=== PATIENT | female | born 2000 | race Two or more races ===

== ENCOUNTER 2025-06-04 16:04 | Inpatient (IN) ==
--- NOTE | 2025-06-04 16:32 | Emergency Department Note ---
Impression & Plan Tachypnea, Tachycardia, Chest pain, Shortness of breath, Leukocytosis, Fever ED Provider Note CHIEF COMPLAINT: SOB HISTORY OF PRESENTING ILLNESS: Patient is a 24-year-old female presents emergency department today for complaints of shortness of breath and a heavy pressure in her mid chest area. She reports she cannot lay flat without significant discomfort. She has been unable to sleep or get comfortable. She reports an onset of this morning when she woke up. She does report sleeping prone with her arm on her chest last night. She denies any control use, smoking or vaping, recent surgeries, recent travel. She does report some mild sinus congestion with a dry nonproductive cough. She denies any lightheadedness, dizziness, headache, visual changes, falls, injury, trauma. She denies any fevers or chills, urinary symptoms such as urgency frequency burning on urination. Denies any history of asthma or COPD. REVIEW OF SYSTEMS: See HPI for pertinent positives and pertinent negatives. ALLERGIES: See below MEDICATIONS: See below PAST MEDICAL HISTORY: See below PHYSICAL EXAM: VITALS: Vitals are noted on the nurse's note and reviewed by myself. GENERAL: Non toxic, in no acute distress, non-diaphoretic. SKIN: Capillary refill <2 sec. EYES: PERRLA. EOMI. Conjunctivae without injection, sclerae without icterus. NOSE: Patent without discharge. MOUTH: Mucous membranes moist. Uvula midline. Airway patent. NECK: Supple without nuchal rigidity. HEART: Regular rate and rhythm without murmurs gallops or rubs. LUNGS: Clear to auscultation bilaterally without wheezes, rales or rhonchi. No retractions or accessory muscle use. ABDOMEN: Positive bowel sounds x 4. Normal tympanic percussion. Soft, nontender to palpation. MUSCULOSKELETAL: No gross musculoskeletal defects. NEURO: Patient was alert and oriented. No focal neurological deficits. DIFFERENTIAL DIAGNOSIS: Differential diagnosis includes acute coronary syndrome, pulmonary embolism, pneumothorax, pericarditis, myocarditis, endocarditis, anxiety, musculoskeletal pain, GERD, costochondritis, pneumonia, among others. ED COURSE AND MEDICAL DECISION MAKING: HISTORY FROM INDEPENDENT HISTORIAN: History was provided by the patient and friend at bedside who secondary historian. MONITOR: Continuous jewel sorter: Order was placed for continuous jewel sorter. Patient was placed on the jewel sorter and continuous pulse ox. Patient was noted to be in normal sinus rhythm at an initial rate of 123 bpm per my interpretation. EKG: EKG was interpreted by myself as sinus tachycardia at a rate of 118 bpm. INTERPRETATION OF LABS: I interpreted the labs with full lab results as below in the lab section of this note. Laboratory results pertinent to the emergent complaint are discussed in the MDM section below. The patient was advised to follow up with their PCP and/or specialist(s) for further outpatient monitoring and management of any abnormal results. INTERPRETATION OF IMAGING: Imaging studies were interpreted by myself and read by radiology as per the imaging section of this note. The patient was advised to follow up with their PCP and/or specialist(s) for further outpatient management of any non-emergent abnormal findings. CHRONIC MEDICAL/SOCIAL CONDITIONS AFFECTING CARE: No social concerns were identified as barriers to patients care. ESCALATION OF CARE CONSIDERED: I considered admission on this patient due to persistent tachycardia, and source of infection, leukocytosis. CONSULTATIONS: I had a meaningful discussion about this patient with Dr. Wilson who agrees with my assessment and the treatment plan. SUMMARY: I examined the patient for complaints of shortness of breath and midsternal chest pain. A physical exam and history were performed. Nursing notes, EMR, and medication list were personally reviewed. Patient declined pain medications or antiemetic initially due to taking Tylenol prior to arrival. I initially ordered a chest x-ray and D-dimer as I was concerned for an infective source of the patients symptoms. Will consider advanced imaging if D-dimer is elevated. Patient noted to be tachycardic on arrival with a low grade fever of 37.6. CBC showed a leukocytosis with a white blood cell count of 23.26. No anemia or thrombocytopenia. D-dimer was 248. CMP showed no emergent findings. Lactate was 2.4. Troponin was less than 2.3. hCG qualitative was negative. Procalcitonin was 0.58. Bio fire was negative. Chest x-ray showed no acute findings. Urinalysis showed no leukocytes, nitrates, bacteria. Throughout ED course, patient remained tachycardic. Patient was given 2L of NSS for fluid resuscitation per sepsis protocol without improvement in tachycardia. With no direct source of the patients infection, CTA of the chest was ordered and showed no definite sign of PE, mild pulmonary edema, right middle lobe nodular opacity. I did discuss these findings with the patient. Repeat x-ray was ordered as well as a BNP. Lung sounds remained clear even after fluid resuscitation. Patient reports no better or worse symptoms. I discussed admission with the patient due to her persistent symptoms with no clear source of infection and her and her significant other were in agreements. I consulted with Dr. Wilkinson for admission, patient was accepted. Repeat chest x-ray showed no acute findings. BNP was 44. Care transferred to hospitalist. DIAGNOSIS: Tachycardia, elevated lactic, leukocytosis, tachypnea, chest pain, shortness of breath, fever TREATMENT PLAN/DISCHARGE INSTRUCTIONS: Admit to hospitalist services. The chart was completed utilizing [employer] Speech voice recognition software.Grammatical errors, random word insertions, pronoun errors, and incomplete sentences are an occasional consequence of this system due to software limitations, ambient noise, and hardware issues.Any formal questions or concerns about the content, text, or information contained within the body of this dictation should be directly addressed to the physician for clarification. Past Med/Surg History Problem List (Updated 06/04/25 @ 20:48 by JING Almeida) Fever (Acute) Leukocytosis (Acute) Shortness of breath (Acute) Chest pain (Acute) Tachycardia (Acute) Tachypnea (Acute) Social History Smoking Status: Never smoker Preferred Language: Moldovan Feels Safe at Home: Yes Allergies Allergies Allergy/AdvReac Type Severity Reaction Status Date / Time No Known Allergies Allergy Verified 06/04/25 18:12 Home Meds Home Medications Medication Instructions Recorded Confirmed acetaminophen 500 mg tablet 500 mg PO DIRECTED PRN 06/04/25 06/04/25 (Tylenol Extra Strength) PAIN/ACHES/FEVER Results & Data (ED) Vital Signs Vital Signs - 24 hr 06/04/25 16:12 06/04/25 16:37 06/04/25 16:37 Temperature 37.6 C H Temperature Source Oral Pulse Rate 123 H Pulse Rate [Apical] Pulse Rate from SpO2 Sensor Pulse Rhythm Regular Respiratory Rate 20 Respiratory Effort / Characteristics Non-Labored Spontaneous Non-Labored Spontaneous Respiratory Depth Normal Normal Respiratory Pattern Regular Regular Blood Pressure 119/79 Blood Pressure [Right Arm] Blood Pressure Mean 92 Blood Pressure Mean [Right Arm] Pulse Oximetry 97 Oxygen Delivery Method Room Air Room Air Room Air Sepsis Recent Fever Within 48 Hours Yes Sepsis New/Unexplained Change in Mental Status No Sepsis Action Taken by Nursing No Action Required 06/04/25 16:39 06/04/25 16:39 06/04/25 16:45 Temperature Temperature Source Pulse Rate 123 H 112 H Pulse Rate [Apical] 120 H Pulse Rate from SpO2 Sensor Pulse Rhythm Respiratory Rate 20 19 Respiratory Effort / Characteristics Non-Labored Spontaneous Respiratory Depth Normal Respiratory Pattern Regular Blood Pressure Blood Pressure [Right Arm] 123/87 Blood Pressure Mean Blood Pressure Mean [Right Arm] 99 Pulse Oximetry 96 99 Oxygen Delivery Method Room Air Room Air Sepsis Recent Fever Within 48 Hours Sepsis New/Unexplained Change in Mental Status Sepsis Action Taken by Nursing 06/04/25 16:45 06/04/25 17:09 06/04/25 17:30 Temperature Temperature Source Pulse Rate 113 H 124 H Pulse Rate [Apical] Pulse Rate from SpO2 Sensor 113 H 121 H Pulse Rhythm Respiratory Rate 18 24 Respiratory Effort / Characteristics Respiratory Depth Respiratory Pattern Blood Pressure 129/82 105/75 120/74 Blood Pressure [Right Arm] Blood Pressure Mean 97 90 89 Blood Pressure Mean [Right Arm] Pulse Oximetry 99 94 Oxygen Delivery Method Room Air Room Air Sepsis Recent Fever Within 48 Hours Sepsis New/Unexplained Change in Mental Status Sepsis Action Taken by Nursing 06/04/25 17:30 06/04/25 17:30 06/04/25 17:42 Temperature Temperature Source Pulse Rate 126 H Pulse Rate [Apical] Pulse Rate from SpO2 Sensor 124 H Pulse Rhythm Respiratory Rate 46 H Respiratory Effort / Characteristics Respiratory Depth Respiratory Pattern Blood Pressure 120/74 120/74 Blood Pressure [Right Arm] Blood Pressure Mean 81 81 Blood Pressure Mean [Right Arm] Pulse Oximetry 94 Oxygen Delivery Method Sepsis Recent Fever Within 48 Hours Sepsis New/Unexplained Change in Mental Status Sepsis Action Taken by Nursing 06/04/25 17:54 06/04/25 18:00 06/04/25 18:00 Temperature Temperature Source Pulse Rate 135 H Pulse Rate [Apical] Pulse Rate from SpO2 Sensor 134 H Pulse Rhythm Respiratory Rate 38 H Respiratory Effort / Characteristics Respiratory Depth Respiratory Pattern Blood Pressure 111/76 111/76 Blood Pressure [Right Arm] Blood Pressure Mean 80 80 Blood Pressure Mean [Right Arm] Pulse Oximetry 96 Oxygen Delivery Method Sepsis Recent Fever Within 48 Hours Sepsis New/Unexplained Change in Mental Status Sepsis Action Taken by Nursing 06/04/25 18:00 06/04/25 18:00 06/04/25 18:00 Temperature Temperature Source Pulse Rate Pulse Rate [Apical] Pulse Rate from SpO2 Sensor Pulse Rhythm Respiratory Rate Respiratory Effort / Characteristics Respiratory Depth Respiratory Pattern Blood Pressure 111/76 111/76 111/76 Blood Pressure [Right Arm] Blood Pressure Mean 80 80 80 Blood Pressure Mean [Right Arm] Pulse Oximetry Oxygen Delivery Method Sepsis Recent Fever Within 48 Hours Sepsis New/Unexplained Change in Mental Status Sepsis Action Taken by Nursing 06/04/25 18:00 06/04/25 18:12 06/04/25 19:00 Temperature Temperature Source Pulse Rate 130 H 132 H 132 H Pulse Rate [Apical] Pulse Rate from SpO2 Sensor 130 H 132 H 133 H Pulse Rhythm Respiratory Rate 28 H 36 H 43 H Respiratory Effort / Characteristics Respiratory Depth Respiratory Pattern Blood Pressure 103/78 Blood Pressure [Right Arm] Blood Pressure Mean 86 Blood Pressure Mean [Right Arm] Pulse Oximetry 96 95 94 Oxygen Delivery Method Sepsis Recent Fever Within 48 Hours Sepsis New/Unexplained Change in Mental Status Sepsis Action Taken by Nursing 06/04/25 19:01 06/04/25 19:30 06/04/25 20:30 Temperature 38.4 C H Temperature Source Oral Pulse Rate 137 H 128 H Pulse Rate [Apical] Pulse Rate from SpO2 Sensor 133 H 128 H Pulse Rhythm Respiratory Rate 37 H 33 H Respiratory Effort / Characteristics Respiratory Depth Respiratory Pattern Blood Pressure 114/76 110/78 Blood Pressure [Right Arm] Blood Pressure Mean 88 88 Blood Pressure Mean [Right Arm] Pulse Oximetry 95 96 Oxygen Delivery Method Sepsis Recent Fever Within 48 Hours Sepsis New/Unexplained Change in Mental Status Sepsis Action Taken by Nursing 06/04/25 20:33 06/04/25 21:00 06/04/25 21:00 Temperature Temperature Source Pulse Rate 136 H Pulse Rate [Apical] Pulse Rate from SpO2 Sensor Pulse Rhythm Respiratory Rate Respiratory Effort / Characteristics Respiratory Depth Respiratory Pattern Blood Pressure 86/66 L 86/66 L Blood Pressure [Right Arm] Blood Pressure Mean 70 70 Blood Pressure Mean [Right Arm] Pulse Oximetry Oxygen Delivery Method Sepsis Recent Fever Within 48 Hours Sepsis New/Unexplained Change in Mental Status Sepsis Action Taken by Nursing 06/04/25 21:00 06/04/25 21:00 06/04/25 21:00 Temperature Temperature Source Pulse Rate 122 H Pulse Rate [Apical] Pulse Rate from SpO2 Sensor 122 H Pulse Rhythm Respiratory Rate 34 H Respiratory Effort / Characteristics Respiratory Depth Respiratory Pattern Blood Pressure 86/66 L 86/66 L Blood Pressure [Right Arm] Blood Pressure Mean 70 70 Blood Pressure Mean [Right Arm] Pulse Oximetry 96 Oxygen Delivery Method Sepsis Recent Fever Within 48 Hours Sepsis New/Unexplained Change in Mental Status Sepsis Action Taken by Nursing 06/04/25 21:12 06/04/25 21:27 06/04/25 21:30 Temperature Temperature Source Pulse Rate 124 H 129 H 121 H Pulse Rate [Apical] Pulse Rate from SpO2 Sensor 125 H 129 H 120 H Pulse Rhythm Respiratory Rate 38 H 33 H 27 H Respiratory Effort / Characteristics Respiratory Depth Respiratory Pattern Blood Pressure 107/68 101/67 Blood Pressure [Right Arm] Blood Pressure Mean 81 78 Blood Pressure Mean [Right Arm] Pulse Oximetry 95 95 94 Oxygen Delivery Method Sepsis Recent Fever Within 48 Hours Sepsis New/Unexplained Change in Mental Status Sepsis Action Taken by Nursing Laboratory Data 06/04/25 16:30 06/04/25 16:30 Lab Results 06/04/25 06/04/25 06/04/25 Range/Units 16:30 17:35 20:52 WBC 23.26 H (4.8-10.8) K/ul RBC 4.45 (4.20-5.40) M/uL Hgb 12.8 (12.0-16.0) g/dL Hct 37.6 (37.0-47.0) % MCV 84.5 (80.0-100.0) fL MCH 28.8 (25.0-34.0) pg MCHC 34.0 (32.0-36.0) g/dL RDW Std Deviation 40.0 (36.4-46.3) fL RDW Coeff of Adryan 13.1 (11.5-14.5) % Plt Count 274 (130-400) K/uL MPV 9.5 (9.4-12.4) fL Immature Gran % (Auto) 0.5 % Neut % (Auto) 95.2 % Lymph % (Auto) 1.9 % Winn % (Auto) 2.1 % Eos % (Auto) 0.1 % Baso % (Auto) 0.2 % Neut # (Auto) 22.15 H (1.40-6.50) K/uL Lymph # (Auto) 0.44 L (1.20-3.40) K/uL Winn # (Auto) 0.49 (0.11-0.59) K/uL Eos # (Auto) 0.02 (0.00-0.50) K/uL Baso # (Auto) 0.05 (0.00-0.20) K/uL Immature Gran # (Auto) 0.11 (0.01-0.20) K/uL Toxic Vacuolation 1+ D-Dimer 240 (0-500) ug/L FEU Sodium 136 (136-145) mmol/L Potassium 3.7 (3.5-5.1) mmol/L Chloride 108 H (98-107) mmol/L Carbon Dioxide 21 (21-32) mmol/L Anion Gap 7 (3-11) BUN 8 (6-23) mg/dl Creatinine 0.51 L (0.6-1.2) mg/dl Est Cr Clr Drug Dosing 159.3 ml/min eGFR 131.94 BUN/Creatinine Ratio 15.7 (10-20) Glucose 117 H (70-99(Fasting)) mg/dl Lactate 2.4 H* 2.3 H* (0.4-2.0) mmol/L Calcium 8.9 (8.6-10.3) mg/dl Magnesium 1.6 L (1.7-2.4) mg/dl Total Bilirubin 0.8 (0.2-1.0) mg/dl AST 15 (13-39) U/L ALT 14 (7-52) U/L Alkaline Phosphatase 70 (34-104) U/L Troponin I High Sens < 2.3 (0-14) pg/ml B-Natriuretic Peptide 44 (0-100) pg/ml Total Protein 7.2 (6.0-8.3) gm/dl Albumin 3.9 (3.4-5.0) gm/dl Globulin 3.3 (2.5-4.0) gm/dl Albumin/Globulin Ratio 1.2 (0.9-2) Procalcitonin 0.58 H (0-0.5) ng/ml HCG, Qual Negative (Negative) Urine Color Urine Appearance (Clear) Urine pH (4.5-7.5) Ur Specific [place] (1.000-1.030) Urine Protein (Negative) Urine Glucose (UA) (Negative) Urine Ketones (Negative) Urine Blood (Negative) Urine Nitrite (Negative) Urine Bilirubin (Negative) Urine Urobilinogen (Negative) Ur Leukocyte Esterase (Negative) Urine WBC (Auto) (0-5) /hpf Urine RBC (Auto) (0-2) /hpf U Hyaline Cast (Auto) (0-2) /lpf U Epithel Cells (Auto) (0-2) /hpf Urine Bacteria (Auto) (None Seen) Urine Comment Adenovirus (PCR) Not Detected (NotDetected) Babesia Smear Cancelled B. pertussis DNA (PCR) Not Detected (NotDetected) B.parapertussis DNA PCR Not Detected (NotDetected) Lyme Disease Screen Negative (Negative) C. pneumoniae DNA (PCR) Not Detected (NotDetected) Coronavirus OC43 (PCR) Not Detected (NotDetected) Coronavirus HKU1 (PCR) Not Detected (NotDetected) Coronavirus 229E (PCR) Not Detected (NotDetected) SARS-CoV-2 (PCR) Not Detected (NotDetected) Coronavirus NL63 (PCR) Not Detected (NotDetected) Human Metapneumovir PCR Not Detected (NotDetected) Influenza Type A (PCR) Not Detected (NotDetected) Influenza Type B (PCR) Not Detected (NotDetected) M. pneumoniae (PCR) Not Detected (NotDetected) Parainfluenza 1 (PCR) Not Detected (NotDetected) Parainfluenza 2 (PCR) Not Detected (NotDetected) Parainfluenza 3 (PCR) Not Detected (NotDetected) Parainfluenza 4 (PCR) Not Detected (NotDetected) RSV (PCR) Not Detected (NotDetected) Entero/Rhino (PCR) Not Detected (NotDetected) 06/04/25 Range/Units Unknown WBC (4.8-10.8) K/ul RBC (4.20-5.40) M/uL Hgb (12.0-16.0) g/dL Hct (37.0-47.0) % MCV (80.0-100.0) fL MCH (25.0-34.0) pg MCHC (32.0-36.0) g/dL RDW Std Deviation (36.4-46.3) fL RDW Coeff of Adryan (11.5-14.5) % Plt Count (130-400) K/uL MPV (9.4-12.4) fL Immature Gran % (Auto) % Neut % (Auto) % Lymph % (Auto) % Winn % (Auto) % Eos % (Auto) % Baso % (Auto) % Neut # (Auto) (1.40-6.50) K/uL Lymph # (Auto) (1.20-3.40) K/uL Winn # (Auto) (0.11-0.59) K/uL Eos # (Auto) (0.00-0.50) K/uL Baso # (Auto) (0.00-0.20) K/uL Immature Gran # (Auto) (0.01-0.20) K/uL Toxic Vacuolation D-Dimer (0-500) ug/L FEU Sodium (136-145) mmol/L Potassium (3.5-5.1) mmol/L Chloride (98-107) mmol/L Carbon Dioxide (21-32) mmol/L Anion Gap (3-11) BUN (6-23) mg/dl Creatinine (0.6-1.2) mg/dl Est Cr Clr Drug Dosing ml/min eGFR BUN/Creatinine Ratio (10-20) Glucose (70-99(Fasting)) mg/dl Lactate (0.4-2.0) mmol/L Calcium (8.6-10.3) mg/dl Magnesium (1.7-2.4) mg/dl Total Bilirubin (0.2-1.0) mg/dl AST (13-39) U/L ALT (7-52) U/L Alkaline Phosphatase (34-104) U/L Troponin I High Sens (0-14) pg/ml B-Natriuretic Peptide (0-100) pg/ml Total Protein (6.0-8.3) gm/dl Albumin (3.4-5.0) gm/dl Globulin (2.5-4.0) gm/dl Albumin/Globulin Ratio (0.9-2) Procalcitonin (0-0.5) ng/ml HCG, Qual (Negative) Urine Color Yellow Urine Appearance Clear (Clear) Urine pH 7.0 (4.5-7.5) Ur Specific [place] 1.008 (1.000-1.030) Urine Protein Negative (Negative) Urine Glucose (UA) Negative (Negative) Urine Ketones Negative (Negative) Urine Blood Negative (Negative) Urine Nitrite Negative (Negative) Urine Bilirubin Negative (Negative) Urine Urobilinogen Negative (Negative) Ur Leukocyte Esterase Trace H (Negative) Urine WBC (Auto) 0-5 (0-5) /hpf Urine RBC (Auto) 0-2 (0-2) /hpf U Hyaline Cast (Auto) 0-2 (0-2) /lpf U Epithel Cells (Auto) 6-10 H (0-2) /hpf Urine Bacteria (Auto) None Seen (None Seen) Urine Comment Adenovirus (PCR) (NotDetected) Babesia Smear B. pertussis DNA (PCR) (NotDetected) B.parapertussis DNA PCR (NotDetected) Lyme Disease Screen (Negative) C. pneumoniae DNA (PCR) (NotDetected) Coronavirus OC43 (PCR) (NotDetected) Coronavirus HKU1 (PCR) (NotDetected) Coronavirus 229E (PCR) (NotDetected) SARS-CoV-2 (PCR) (NotDetected) Coronavirus NL63 (PCR) (NotDetected) Human Metapneumovir PCR (NotDetected) Influenza Type A (PCR) (NotDetected) Influenza Type B (PCR) (NotDetected) M. pneumoniae (PCR) (NotDetected) Parainfluenza 1 (PCR) (NotDetected) Parainfluenza 2 (PCR) (NotDetected) Parainfluenza 3 (PCR) (NotDetected) Parainfluenza 4 (PCR) (NotDetected) RSV (PCR) (NotDetected) Entero/Rhino (PCR) (NotDetected) Administered Medications Magnesium Sulfate/Dextrose (Magnesium Sulfate / D5w) 1 gm in 100 mls @ 50 mls/hr IV Q2H ROSAMARIA Stop: 06/05/25 00:14 Last Admin: 06/04/25 21:24 Dose: 50 mls/hr Documented By: ERM Discontinued Medications Albuterol (Albut/Ipratrop 3mg/0.5mg Neb 3 Ml Vial) 3 ml INH NOW STA Stop: 06/04/25 16:28 Last Admin: 06/04/25 18:45 Dose: Not Given Documented By: mbu Sodium Chloride (Nss) 1,000 mls @ 999 mls/hr IV .Q1H1M ROSAMARIA Stop: 06/04/25 17:30 Last Infusion: 06/04/25 18:22 Dose: Infused Documented By: marcell Admin: 06/04/25 16:39 Dose: 999 mls/hr Documented By: DAVONTE Sodium Chloride (Nss) 1,000 mls @ 999 mls/hr IV .Q1H1M ONE Stop: 06/04/25 19:21 Last Infusion: 06/04/25 20:00 Dose: Infused Documented By: Admin: 06/04/25 18:27 Dose: 999 mls/hr Documented By: marcell Ceftriaxone Sodium (Rocephin) 1,000 mg in 50 mls @ 100 mls/hr IV NOW STA Stop: 06/04/25 19:37 Last Infusion: 06/04/25 19:59 Dose: Infused Documented By: Admin: 06/04/25 19:15 Dose: 100 mls/hr Documented By: OLINDA Ioversol (Optiray 320 125ml) 118 ml IV ONCE ONE Stop: 06/04/25 18:33 Last Admin: 06/04/25 18:33 Dose: 118 ml Documented By: NANCY Ketorolac Tromethamine (Ketorolac Tromethamine 15 Mg/Ml Vial) 10 mg IV NOW ONE Stop: 06/04/25 19:09 Last Admin: 06/04/25 19:15 Dose: 10 mg Documented By: OLINDA Imaging Data Radiologist's Impression: Chest X-Ray 06/04/25 16:27 Clinical History: Chest pain and shortness of breath Technique: PA and lateral views of the chest were obtained Findings: There are no definite pulmonary infiltrates. The heart size is within normal limits. No pleural effusion or pneumothorax is seen. There is no definite pulmonary nodule. No fracture is noted. No foreign body is seen Impression: No active disease Electronically signed by Iker Quispe 06-04-2025 5:35 PM Chest CTA 06/04/25 18:20 Clinical history: Difficulty breathing Technique: Axial computed tomography images were obtained of the chest after the administration of intravenous contrast according to the CT angiogram protocol Findings: There is no definite sign of pulmonary embolism. There is mild pulmonary edema. There is a 5 mm nodular opacity in the right middle lobe. There is no pleural effusion or pneumothorax. No endobronchial lesion is seen There is no mediastinal, hilar, or axillary adenopathy. The thoracic aorta appears unremarkable with no sign of aneurysm or dissection. There is no pericardial effusion The visualized upper abdomen appears unremarkable. No fracture is seen. No focal osseous lesion is evident Impression: 1. No definite sign of pulmonary embolism 2. Mild pulmonary edema 3. Right middle lobe nodular opacity, likely benign but indeterminate in nature. A follow-up chest CT could be obtained in 6 months ACT 112: Positive. There are findings on this exam that require communication between the performing entity and the patient following Patient Test Result Information Act ([place] ACT 112) guidelines. Electronically signed by Iker Quispe 06-04-2025 6:50 PM Chest X-Ray 06/04/25 19:25 Exam(s): XR CXR 2 VIEWS EXAM: XR Chest, 2 Views CLINICAL HISTORY: Reason for exam: sob. TECHNIQUE: Frontal and lateral views of the chest. COMPARISON: Exam performed earlier on the same date FINDINGS: Lungs: Unremarkable. No consolidation. Pleural space: Unremarkable. No pneumothorax. Heart: Unremarkable. No cardiomegaly. Mediastinum: Unremarkable. Normal mediastinal contour. Bones/joints: Unremarkable. No acute fracture. IMPRESSION: Normal chest x-rays. Electronically signed by: Mark Miranda MD 06/04/25 21:09 PM Discharge Plan Visit Data Chief Complaint: Shortness of Breath/Dyspnea Stated Complaint: SOB, CHEST TIGHT WHEN INHALING SINCE AM ED Provider: Alexander Wilson ED Midlevel Provider: Meghan Davis Discharge Problem: Tachypnea, Tachycardia, Chest pain, Shortness of breath, Leukocytosis, Fever Patient Disposition: Admitted As Inpatient Condition: Good Forms Stand Alone Forms: [employer] Prescriptions Prescriptions: No Action acetaminophen [Tylenol Extra Strength] 500 mg Tablet 500 mg PO DIRECTED PRN (Reason: PAIN/ACHES/FEVER) Referrals Referrals: PCP,NO [Primary Care Provider] - Discharge Problem: Chest pain Qualifiers: Chest pain type: other chest pain Qualified Code(s): R07.89 - Other chest pain Leukocytosis Qualifiers: Leukocytosis type: unspecified Qualified Code(s): D72.829 - Elevated white blood cell count, unspecified Fever Qualifiers: Fever type: unspecified Qualified Code(s): R50.9 - Fever, unspecified
[2025-06-04] MEDS: SODIUM CHLORIDE 0.9% 1,000 ML IV SCH (16:39)
[2025-06-04 16:54] LABS: Hematocrit (blood only) 37.6 % (37.0-47.0); Hemoglobin 12.8 g/dL (12.0-16.0); Mean Corpuscular Hemoglobin 28.8 pg (25.0-34.0); Mean Corpuscular Volume 84.5 fL (80.0-100.0); Platelet Count 274 K/uL (130-400); RDW Standard Deviation 40.0 fL (36.4-46.3); Red Blood Count 4.45 M/uL (4.20-5.40); White Blood Count 23.26 K/ul (4.8-10.8)
[2025-06-04 17:10] LABS: Pregnancy Test, Serum Negative (Negative)
[2025-06-04 17:11] LABS: Alanine Aminotransferase 14 U/L (7-52); Albumin Globulin Ratio 1.2 (0.9-2); Albumin Level 3.9 gm/dl (3.4-5.0); Alkaline Phosphatase 70 U/L (34-104); Anion Gap 7 (3-11); Bilirubin,Total 0.8 mg/dl (0.2-1.0); Blood Urea Nitrogen 8 mg/dl (6-23); Calcium 8.9 mg/dl (8.6-10.3); Carbon Dioxide 21 mmol/L (21-32); Chloride 108 mmol/L (98-107); Creatinine Clr Calc Pharmacy 159.3 ml/min; Globulin 3.3 gm/dl (2.5-4.0); Glucose 117 mg/dl (70-99(Fasting)); Potassium 3.7 mmol/L (3.5-5.1); Sodium 136 mmol/L (136-145); Total Protein 7.2 gm/dl (6.0-8.3)
[2025-06-04 17:23] LABS: Immature Granulocytes # (auto) 0.11 K/uL (0.01-0.20); Immature Granulocytes % (auto) 0.5 %
--- NOTE | 2025-06-04 17:35 | XRay Report ---
Clinical History: Chest pain and shortness of breath Technique: PA and lateral views of the chest were obtained Findings: There are no definite pulmonary infiltrates. The heart size is within normal limits. No pleural effusion or pneumothorax is seen. There is no definite pulmonary nodule. No fracture is noted. No foreign body is seen Impression: No active disease Electronically signed by Iker Quispe 06-04-2025 5:35 PM
[2025-06-04 17:39] LABS: Chlamydia pneumoniae PCR Not Detected (NotDetected); Coronavirus 229E PCR Not Detected (NotDetected); Coronavirus CoV-2 (COVID19)PCR Not Detected (NotDetected); Coronavirus HKU1 PCR Not Detected (NotDetected); Coronavirus NL63 PCR Not Detected (NotDetected); Coronavirus OC43PCR Not Detected (NotDetected); Human Metapneumovirus PCR Not Detected (NotDetected); Parainfluenza Virus 1 PCR Not Detected (NotDetected); Parainfluenza Virus 2 PCR Not Detected (NotDetected); Parainfluenza Virus 3 PCR Not Detected (NotDetected); Parainfluenza Virus 4 PCR Not Detected (NotDetected); Respiratory Syncytial VirusPCR Not Detected (NotDetected); Rhinovirus/Enterovirus PCR Not Detected (NotDetected)
[2025-06-04] MEDS: SODIUM CHLORIDE 0.9% 1,000 ML IV ONE (18:27)
[2025-06-04] MEDS: OPTIRAY 320 125ml IV ONE (18:33)
[2025-06-04] MEDS: ALBUT/IPRATROP 3MG/0.5MG NEB 3 ML VIAL INH STA (18:45)
[2025-06-04 18:50] LABS: Appearance Urine Clear (Clear); Bacteria Urine Automated None Seen (None Seen); Cast Urine Automated 0-2 /lpf (0-2); Glucose Urine UA Negative (Negative); RBC Urine Automated 0-2 /hpf (0-2); WBC Urine Automated 0-5 /hpf (0-5)
--- NOTE | 2025-06-04 18:51 | CT Scan Report ---
Clinical history: Difficulty breathing Technique: Axial computed tomography images were obtained of the chest after the administration of intravenous contrast according to the CT angiogram protocol Findings: There is no definite sign of pulmonary embolism. There is mild pulmonary edema. There is a 5 mm nodular opacity in the right middle lobe. There is no pleural effusion or pneumothorax. No endobronchial lesion is seen There is no mediastinal, hilar, or axillary adenopathy. The thoracic aorta appears unremarkable with no sign of aneurysm or dissection. There is no pericardial effusion The visualized upper abdomen appears unremarkable. No fracture is seen. No focal osseous lesion is evident Impression: 1. No definite sign of pulmonary embolism 2. Mild pulmonary edema 3. Right middle lobe nodular opacity, likely benign but indeterminate in nature. A follow-up chest CT could be obtained in 6 months ACT 112: Positive. There are findings on this exam that require communication between the performing entity and the patient following Patient Test Result Information Act ([place] ACT 112) guidelines. Electronically signed by Iker Quispe 06-04-2025 6:50 PM
[2025-06-04] MEDS: KETOROLAC TROMETHAMINE 15 MG/ML VIAL IV ONE (19:15)
[2025-06-04] MEDS: cefTRIAXone SODIUM 1,000 MG/50 ML BAG IV STA (19:15)
[2025-06-04 19:49] LABS: Magnesium 1.6 mg/dl (1.7-2.4)
--- NOTE | 2025-06-04 21:10 | XRay Report ---
Exam(s): XR CXR 2 VIEWS EXAM: XR Chest, 2 Views CLINICAL HISTORY: Reason for exam: sob. TECHNIQUE: Frontal and lateral views of the chest. COMPARISON: Exam performed earlier on the same date FINDINGS: Lungs: Unremarkable. No consolidation. Pleural space: Unremarkable. No pneumothorax. Heart: Unremarkable. No cardiomegaly. Mediastinum: Unremarkable. Normal mediastinal contour. Bones/joints: Unremarkable. No acute fracture. IMPRESSION: Normal chest x-rays. Electronically signed by: Mark Miranda MD 06/04/25 21:09 PM
[2025-06-04] MEDS: MAGNESIUM SULFATE / D5W 1 GM/100 ML BAG IV SCH (21:24)
--- NOTE | 2025-06-04 21:26 | History & Physical Report ---
Date of Service June 04, 2025 Assessment & Plan (1) Chest pain: (2) SIRS (systemic inflammatory response syndrome): (3) Pulmonary nodule, right: Plan Patient is a 24 y/o F w/ no significant PMHx who was admitted due to new onset chest pain. Chest Pain - Started earlier today but improved with Tylenol at home; not present at the time of evaluation - Troponin negative x1, chest CTA w/o evidence of PE - EKG showing sinus tachycardia but otherwise not showing significant ST segment or T wave changes - Started lifting weights on day before sxs onset, but pain not reproducible on exam - Worse with inspiration and with laying down but relieved when sitting up could suggest pleurisy and/or pericarditis - Tylenol for pain control, but can consider addition of NSAID if pain persists - Continue to monitor telemetry (+) SIRS - Patient with new onset chest pain, and noted to have fever of 38.4 C in ED as well as leukocytosis and tachycardia; meets SIRS criteria - Lactate of 2.4 with recheck level of 2.3 and procal of 0.58; Labs also note +1 Toxic vacuolation - Blood culture collected and pending - Source uncertain; Ordered additional testing to check for Lyme, Anaplasma, Babesia, as well as Malaria, and Acid Fast sputum culture given patient moved here from [facility] and had noted nodular opacity in chest CTA - Isolation precautions for now until TB ruled out - LR at maintenance rate - S/p Ceftriaxone 1 gm IV in ED (R) Middle Lobe Nodule - Noted 5 mm nodular opacity on R middle lobe on chest CTA - Consider repeat imaging in 6-12 months Dispo: PCU/Tele Fluids: LR Diet: Regular (Halal) VTE ppx: Low bleeding risk; encourage ambulation Code Status: FULL History of Present Illness Chief Complaint: Chest pain Primary Care Provider: NO PCP Patient is a 24 y/o F w/ no significant PMHx who comes to the ED due to new onset of chest pain. Patient states she woke up earlier today with sternal chest discomfort that she describes as a pressure sensation that sometimes moves to the left side of her chest but not to her arm or jaw. Pain is exacerbated by deep breaths so she tries to take more shallow breaths to try and limit sxs recurrence, but denies having difficulty with breathing. Used Acetaminophen and Esomeprazole at home which lead to pain relief. Also denies other associated sxs such as fevers, chills, night sweats, N/V/D, abdominal pain, rashes, changes in appetite, hemoptysis, weakness, or other associated sxs. The day before sxs onset, patient went to the gym (as she usually does) and lifted weights for the first time. No known sick contacts. She moved to [place] from [facility] around February of this year, but this is the first time she is experiencing these sxs. ED Course: Given NSS 1L bolus x2, Ceftriaxone 1 gm IV, and Toradol 10 mg IV Labs/Imaging: CBC w/ leukocytosis of 23.2 w/ neutrophilic predominance, hgb of 12.8, and plt of 274. CMP w/o significant electrolyte abnormalities and LFTs unremarkable. D-dimer of 240. Negative troponin. Lactate of 2.4 w/ repeat at 2.3 around 3 hrs later. Magnesium of 1.6. Procal of 0.58. CXR unremarkable. Chest CTA showing mild pulmonary edema, no evidence of PE, (R) middle lobe nodular opacity measuring 5 mm. Medical History: [Reviewed] Medications: [Reviewed] Surgical History: [Reviewed] Family history: [Reviewed] Allergies: [Reviewed] Social History: [Reviewed] Code Status: FULL Allergies Allergy/AdvReac Type Severity Reaction Status Date / Time No Known Allergies Allergy Verified 06/04/25 18:12 Home Medications Medication Instructions Recorded Confirmed Type acetaminophen 500 mg tablet 500 mg PO DIRECTED PRN 06/04/25 06/04/25 History (Tylenol Extra Strength) PAIN/ACHES/FEVER Past Med/Surg History Problem List (Updated 06/05/25 @ 00:55 by Zari Neal MD) Pulmonary nodule, right SIRS (systemic inflammatory response syndrome) Fever (Acute) Leukocytosis (Acute) Shortness of breath (Acute) Chest pain (Acute) Tachycardia (Acute) Tachypnea (Acute) Social History Smoking Status: Never smoker Hx Alcohol Use: No Hx Substance Use: No Preferred Language: Uzbek Communication Ability: Effective Medical Record Coder Required: No Beliefs That Will Affect Care: None Current Living Situation: Spouse Other Information That Helps Us Care for You: No Feels Safe at Home: Yes Safety Concerns: Feels Safe At This Time Assistive Devices: None Review of Systems Review of Systems: As per HPI Physical Exam Physical Exam: GENERAL: AAOx4, afebrile at time of evaluation, NAD HEAD: AT, NC EYES: IRENE, EOM intact THROAT: normal to visual inspection CHEST: symmetric chest expansions with respirations, no tenderness on palpation of chest wall CARDIO: tachycardic, no r/m/g PULMONARY: CTA bilaterally, normal respiratory effort, no respiratory distress, breathing comfortably at room air GI: soft, NT, ND EXTREMITIES: no swelling or calf tenderness in b/l LE Results & Data Results & Data Vital Signs (Past 12 Hours) Vital Signs Temp Pulse Pulse Resp BP BP Pulse Ox 06/04/25 21:12 124 H 38 H 95 06/04/25 21:00 122 H 34 H 96 06/04/25 21:00 86/66 L 06/04/25 21:00 86/66 L 06/04/25 21:00 86/66 L 06/04/25 21:00 86/66 L 06/04/25 20:33 136 H 06/04/25 20:30 128 H 33 H 110/78 96 06/04/25 19:30 137 H 37 H 114/76 95 06/04/25 19:01 38.4 C H 06/04/25 19:00 132 H 43 H 103/78 94 06/04/25 18:12 132 H 36 H 95 06/04/25 18:00 130 H 28 H 96 06/04/25 18:00 06/04/25 18:00 06/04/25 18:00 06/04/25 18:00 06/04/25 18:00 06/04/25 17:54 135 H 38 H 96 06/04/25 17:42 126 H 46 H 94 06/04/25 17:30 120/74 06/04/25 17:30 120/74 06/04/25 17:30 124 H 24 120/74 94 06/04/25 17:09 105/75 06/04/25 16:45 113 H 18 129/82 99 06/04/25 16:45 112 H 06/04/25 16:39 120 H 19 123/87 99 06/04/25 16:39 123 H 20 96 06/04/25 16:37 06/04/25 16:37 06/04/25 16:12 37.6 C H 123 H 20 119/79 97 O2 Del Method 06/04/25 21:12 06/04/25 21:00 06/04/25 21:00 06/04/25 21:00 06/04/25 21:00 06/04/25 21:00 06/04/25 20:33 06/04/25 20:30 06/04/25 19:30 06/04/25 19:01 06/04/25 19:00 06/04/25 18:12 06/04/25 18:00 06/04/25 18:00 06/04/25 18:00 06/04/25 18:00 06/04/25 18:00 06/04/25 18:00 06/04/25 17:54 06/04/25 17:42 06/04/25 17:30 06/04/25 17:30 06/04/25 17:30 Room Air 06/04/25 17:09 06/04/25 16:45 Room Air 06/04/25 16:45 06/04/25 16:39 Room Air 06/04/25 16:39 Room Air 06/04/25 16:37 Room Air 06/04/25 16:37 Room Air 06/04/25 16:12 Room Air Supervising Physician Co-Signing Physician Notes attending addendum: I have physically seen this patient, have supervised the medical residents activities, and agree with the H&P unless as otherwise noted. Assessment and Plan: The patient is a 24-year-old female With no significant past medical history, who presented emergency department with new onset chest pain and tachycardia. Chest pain/Sinus tachycardia- Patient had acute onset of chest pain earlier in the day today, did have some improvement with Tylenol at home, and is no longer present at the time of admission. First troponin negative, follow-up pending CTA chest PE protocol was negative for PE EKG with sinus tachycardia at 118, with no acute ST-T changes No reproducible pain on examination The patient will be admitted to telemetry for serial cardiac enzymes, serial EKG's, cardiac rhythm monitoring and a 2-D echocardiogram with Dopplers. Tylenol 650 mg by mouth every 6 hours as needed for mild pain or fever SIRS- Initial temperature was 37.6 that has increased to 38.4 while in the emergency department. Lactate 2.4 with follow-up 2.3. Procalcitonin 0.58 Follow blood culture sensitivities Respiratory BioFire test negative Chest x-ray without acute findings CTA with right middle lobe nodule From the ED received the following: Ceftriaxone 1 g IV, normal saline 1 L IV boluses x 2, DuoNeb treatment x 1, Toradol 10 mg IV x 1. The patient was recently moved to this area from [facility]. The following tests have been ordered and are pending at time of admission: Tickborne illness, malaria, TB testing. Droplet and airborne precautions ordered Right middle lobe nodule- 5 mm nodule on CTA of chest Can be repeated in the outpatient setting per usual protocol in 6 to 12 months Resident Activity Tracking Resident Involvement: Resident Care Provided Care Provided: Adult Hospital Medicine (1) Chest pain Chest pain type: other chest pain Qualified Code(s): R07.89 - Other chest pain
[2025-06-05] MEDS ORDERED: ONDANSETRON INJ 2 MG/ML 2 ML VIAL IV PRN (00:30)
[2025-06-05] MEDS ORDERED: POLYETHYLENE (MIRALAX) 17 GM PACK PO PRN (00:30)
[2025-06-05] MEDS ORDERED: MELATONIN 3 MG TAB PO PRN (00:30)
[2025-06-05 00:51] LABS: Creatine Kinase 73 U/L (26-192)
[2025-06-05] MEDS: LACTATED RINGER'S 1,000 ML IV SCH (01:48)
[2025-06-05] MEDS: ACETAMINOPHEN 325 MG TAB PO PRN (02:46)
[2025-06-05 06:00] LABS: Hematocrit (blood only) 31.4 % (37.0-47.0); Hemoglobin 10.5 g/dL (12.0-16.0); Mean Corpuscular Hemoglobin 28.4 pg (25.0-34.0); Mean Corpuscular Volume 84.9 fL (80.0-100.0); Platelet Count 246 K/uL (130-400); RDW Standard Deviation 40.7 fL (36.4-46.3); Red Blood Count 3.70 M/uL (4.20-5.40); White Blood Count 26.34 K/ul (4.8-10.8)
[2025-06-05 06:17] LABS: Anion Gap 5.0 (3-11); Blood Urea Nitrogen 7.0 mg/dl (6-23); Calcium 7.6 mg/dl (8.6-10.3); Carbon Dioxide 19.0 mmol/L (21-32); Chloride 114.0 mmol/L (98-107); Creatinine Clr Calc Pharmacy 189.0 ml/min; Glucose 124.0 mg/dl (70-99(Fasting)); Magnesium 2.1 mg/dl (1.7-2.4); Potassium 3.6 mmol/L (3.5-5.1); Sodium 138.0 mmol/L (136-145)
[2025-06-05 06:31] LABS: Immature Granulocytes # (auto) 0.13 K/uL (0.01-0.20); Immature Granulocytes % (auto) 0.5 %; Polychromasia 1+
--- NOTE | 2025-06-05 07:02 | Hospitalist Progress Note ---
Date of Service June 05, 2025 Assessment & Plan (1) Community acquired pneumonia: (2) SIRS (systemic inflammatory response syndrome): (3) Pulmonary nodule, right: (4) Pleuritic pain: Plan Patient is a 24 y/o F w/ no significant PMHx who was admitted due to new onset chest pain. With leukocytosis and neutrophil predominance in addition to her improving pleuritic chest pain after starting IV antibiotics, and with unremarkable TTE on 06/05, leading suspicion is RML community acquired bacterial pneumonia #Community acquired pneumonia #RML 5mm nodular opacity on CT Pleuritic chest pain improved overnight with IV antibiotics, TTE is reassuring against bacterial pericarditis due to lack of effusion or thickening seen Lactate resolved, procal mildly elevated; peripheral smear with 1+ toxic vacuolation which is noted in bacterial infections Troponin negative x1, chest CTA w/o evidence of PE - Tylenol for pain control, consider addition of NSAID if pain persists - Continue to monitor on telemetry - Blood cultures NEG at 24hrs - pending Lyme, Anaplasma, Babesia, malaria, and Acid Fast sputum culture given patient moved here from [facility] and had noted nodular opacity in chest CTA - Isolation precautions for now until TB ruled out: quantiferon pending - LR at maintenance rate - S/p Ceftriaxone 1 gm IV in ED- added continued CTX plus azithromycin for tx of CAP - Consider repeat imaging in 6-12 months in case opacity is a true nodule and not a representation of pneumonia - CBC, BMP in AM #Chest wall pain Resolved, likely component of costochondritis after day of heavy lifting in gym day prior to ED presentation Dispo: PCU/Tele Fluids: LR Diet: Regular (Halal) VTE ppx: Low bleeding risk; encourage ambulation Code Status: FULL Admission and Anticipated Discharge Date Admission Date: June 04, 2025 Supervising Physician Co-Signing Physician Notes Resident Physician Supervision Note: I personally examined the patient and verified all lopez points of history and exam, discussed case, and agree with decision making with Dr. Robles I discussed the case with the resident and agree with the findings and plan as documented in the note. Any exceptions or clarifications are listed here: None Patient seen in company of her significant other. She says she feels 70% back to normal. Patient's chest discomfort has gone away but she still remains with difficulty taking a deep breath or having good deep excursion due to some pleuritic pain. Patient endorses that she began doing strength training just prior to the events. She has no other focal signs or symptoms of infectious etiologies. If she have any respiratory signs or symptoms of tuberculosis excetra. Did receive a BCG vaccine Examination finds her to be without cardiac rubs her cardiac exam is regular her lungs are clear with there is no pleural rub good excursion without significant distress upon evaluation by myself Difficult case with fever and some symptoms consistent with pleuritic pain in her chest. These are resolving. There is no defined infection. Will be evaluating to rule out tuberculosis by QuantiFERON gold but if she does continue to improve may consider close outpatient follow-up Documented By: Duc Mondragon MD Subjective Lizeth was seen today at bedside, endorses no concerns overnight and feeling well this AM. Does note some continued pain in chest with deep inspiration, but otherwise no pain or bothersome symptoms. No SOB, lightheadedness, dizziness, fevers, body aches, or chills. Does note she came here from [facility] Feb 2025, otherwise was in [place] in recent months only for a couple days. Denies any recent illness. Reports receiving BCG vaccination in [facility], no known hx of TB nor exposure. Physical Exam Physical Exam: Gen: no acute distress, A&Ox3 Chest: symmetric chest expansions with respirations, no tenderness on palpation of chest wall CV: tachycardic, no m/r/g Resp: CTA b/l, no respiratory distress, breathing comfortably at room air GI: normoactive BS, bad soft, NT, ND MSK: no swelling or calf tenderness in b/l LE Results & Data Results & Data Vital Signs (Past 12 Hours) Vital Signs Temp Pulse Pulse Resp BP BP Pulse Ox 06/05/25 02:20 37.5 C 130 H 18 129/75 93 06/05/25 00:37 37.3 C 127 H 18 135/78 94 06/05/25 00:30 124 H 06/05/25 00:30 06/05/25 00:30 37.3 C 127 H 18 135/78 94 06/05/25 00:30 37.3 C 127 H 18 135/78 94 06/04/25 23:00 118 H 36 H 118/78 91 06/04/25 22:30 122 H 30 H 110/80 94 06/04/25 22:00 123 H 33 H 106/70 93 06/04/25 21:30 121 H 27 H 101/67 94 06/04/25 21:27 129 H 33 H 107/68 95 06/04/25 21:12 124 H 38 H 95 06/04/25 21:00 122 H 34 H 96 06/04/25 21:00 86/66 L 06/04/25 21:00 86/66 L 06/04/25 21:00 86/66 L 06/04/25 21:00 86/66 L 06/04/25 20:33 136 H 06/04/25 20:30 128 H 33 H 110/78 96 06/04/25 19:30 137 H 37 H 114/76 95 Pulse Ox O2 Del Method O2 Del Method 06/05/25 02:20 Room Air 06/05/25 00:37 Room Air 06/05/25 00:30 06/05/25 00:30 94 Room Air 06/05/25 00:30 Room Air 06/05/25 00:30 Room Air 06/04/25 23:00 06/04/25 22:30 06/04/25 22:00 06/04/25 21:30 06/04/25 21:27 06/04/25 21:12 06/04/25 21:00 06/04/25 21:00 06/04/25 21:00 06/04/25 21:00 06/04/25 21:00 06/04/25 20:33 06/04/25 20:30 06/04/25 19:30 Resident Activity Tracking Resident Involvement: Resident Care Provided Care Provided: Adult Hospital Medicine (1) Community acquired pneumonia Laterality: right Lung location: middle lobe of lung Qualified Code(s): J18.9 - Pneumonia, unspecified organism
[2025-06-05 07:26] LABS: Toxic Vacuolation 1+
--- NOTE | 2025-06-05 12:50 | XCELERA ---
[id number] [id number]
--- NOTE | 2025-06-05 13:20 | Electrocardiogram Report ---
Test Reason : Blood Pressure : */* mmHG Vent. Rate : 118 BPM Atrial Rate : 118 BPM P-R Int : 128 ms QRS Dur : 80 ms QT Int : 310 ms P-R-T Axes : 38 69 40 degrees QTcB Int : 434 ms Sinus tachycardia Otherwise normal ECG No previous ECGs available Confirmed by Elijah Hoffman ([id number]) on 06/05/2025 12:55:33 PM Referred By: Confirmed By: Elijah Hoffman
--- NOTE | 2025-06-05 17:30 | Billing Data ---
Date of Service June 05, 2025 Coding Level of Care Code 25424 INT INP/OBS CARE
--- NOTE | 2025-06-05 17:51 | Billing Data ---
Date of Service June 05, 2025 Coding Level of Care Code 41098 SUB INP/OBS CARE
[2025-06-05] MEDS: cefTRIAXone SODIUM 2,000 MG/50 ML BAG IV SCH (18:47)
[2025-06-05] MEDS: AZITHROMYCIN 250 MG TAB PO ONE (18:47)
[2025-06-06 06:26] LABS: Hematocrit (blood only) 33.0 % (37.0-47.0); Hemoglobin 11.0 g/dL (12.0-16.0); Immature Granulocytes # (auto) 0.09 K/uL (0.01-0.20); Immature Granulocytes % (auto) 0.6 %; Mean Corpuscular Hemoglobin 28.5 pg (25.0-34.0); Mean Corpuscular Volume 85.5 fL (80.0-100.0); Platelet Count 263 K/uL (130-400); RDW Standard Deviation 42.0 fL (36.4-46.3); Red Blood Count 3.86 M/uL (4.20-5.40); White Blood Count 15.14 K/ul (4.8-10.8)
[2025-06-06 06:42] LABS: Anion Gap 6.0 (3-11); Blood Urea Nitrogen 8.0 mg/dl (6-23); Calcium 8.4 mg/dl (8.6-10.3); Carbon Dioxide 21.0 mmol/L (21-32); Chloride 112.0 mmol/L (98-107); Creatinine Clr Calc Pharmacy 165.7 ml/min; Glucose 104.0 mg/dl (70-99(Fasting)); Potassium 3.9 mmol/L (3.5-5.1); Sodium 139.0 mmol/L (136-145)
[2025-06-06 08:24] VITALS: RESP 16
[2025-06-06] MEDS: AZITHROMYCIN 250 MG TAB PO SCH (08:45)
[2025-06-06 10:33] LABS: Quantiferon TB1 0.091 IU/mL; Quantiferon TB2 0.065 IU/mL
--- NOTE | 2025-06-06 11:30 | Discharge Summary ---
Date of Service June 06, 2025 Admission HPI Per Admitting Provider Patient is a 24 y/o F w/ no significant PMHx who comes to the ED due to new onset of chest pain. Patient states she woke up earlier today with sternal chest discomfort that she describes as a pressure sensation that sometimes moves to the left side of her chest but not to her arm or jaw. Pain is exacerbated by deep breaths so she tries to take more shallow breaths to try and limit sxs recurrence, but denies having difficulty with breathing. Used Acetaminophen and Esomeprazole at home which lead to pain relief. Also denies other associated sxs such as fevers, chills, night sweats, N/V/D, abdominal pain, rashes, changes in appetite, hemoptysis, weakness, or other associated sxs. The day before sxs onset, patient went to the gym (as she usually does) and lifted weights for the first time. No known sick contacts. She moved to [place] from [facility] around February of this year, but this is the first time she is experiencing these sxs. ED Course: Given NSS 1L bolus x2, Ceftriaxone 1 gm IV, and Toradol 10 mg IV Labs/Imaging: CBC w/ leukocytosis of 23.2 w/ neutrophilic predominance, hgb of 12.8, and plt of 274. CMP w/o significant electrolyte abnormalities and LFTs unremarkable. D-dimer of 240. Negative troponin. Lactate of 2.4 w/ repeat at 2.3 around 3 hrs later. Magnesium of 1.6. Procal of 0.58. CXR unremarkable. Chest CTA showing mild pulmonary edema, no evidence of PE, (R) middle lobe nodular opacity measuring 5 mm. Medical History: [Reviewed] Medications: [Reviewed] Surgical History: [Reviewed] Family history: [Reviewed] Allergies: [Reviewed] Social History: [Reviewed] Code Status: FULL Admission Exam Per Admitting Provider GENERAL: AAOx4, afebrile at time of evaluation, NAD HEAD: AT, NC EYES: IRENE, EOM intact THROAT: normal to visual inspection CHEST: symmetric chest expansions with respirations, no tenderness on palpation of chest wall CARDIO: tachycardic, no r/m/g PULMONARY: CTA bilaterally, normal respiratory effort, no respiratory distress, breathing comfortably at room air GI: soft, NT, ND EXTREMITIES: no swelling or calf tenderness in b/l LE Principal Diagnosis community acquired pneumonia Discharge Exam Gen: no acute distress, A&Ox3 Chest: symmetric chest expansions with respirations, no tenderness on palpation of chest wall CV: tachycardic, no m/r/g Resp: CTA b/l, no respiratory distress, breathing comfortably at room air GI: normoactive BS, bad soft, NT, ND MSK: no swelling or calf tenderness in b/l LE Discharge Data Allergies Allergy/AdvReac Type Severity Reaction Status Date / Time No Known Allergies Allergy Verified 06/04/25 18:12 Consultations 06/04/25 19:52 ED Decision to Admit Stat Ordered Studies 06/04/25 18:20 CT for pulmonary embolism PE [CT angio chest PE protocol] Stat Hospital Course (1) Community acquired pneumonia: (2) SIRS (systemic inflammatory response syndrome): (3) Pulmonary nodule, right: (4) Pleuritic pain: Plan Patient is a 24 y/o F w/ no significant PMHx who was admitted due to new onset chest pain. With leukocytosis and neutrophil predominance in addition to her improving pleuritic chest pain after starting IV antibiotics, and with unremarkable TTE on 06/05, leading suspicion is RML community acquired bacterial pneumonia With both clinical and medical improvement with antibiotics, and now that we have a negative TB blood test, we feel comfortable with her discharge home today. Advised to follow up with PCP, encouraged to establish with PS vs S. #Community Acquired Pneumonia Suspecting based on symptoms of pleuritic chest pain and fever, elevated white blood cells, and no concerning findings on echocardiogram or urinalysis - TB blood test negative - improving labs and symptoms with ceftriaxone plus azithromycin -> de-escalated to oral Augmentin + azithro - continue taking Augmentin 875mg twice daily for 5 more days and Azithromycin 250mg for 3 more days starting tomorrow 06/07/25 to ensure continued resolution of suspected pneumonia - continue healthy diet and good hydration - obtain repeat CBC next week upon followup with PCP after establishing #Right middle lobe nodular opacity 5mm, seen on CT chest - could be a representation of pneumonia, but in case it is a true nodule we'd like you to obtain a followup chest CT in 6-12mos for monitoring Total Time Total Time Spent Total Time Spent (In Minutes): per attending attestation Discharge Plan Discharge Items Patient Disposition: Home - Self-Care Reason For Visit: CHEST PAIN Discharge Diagnosis: community acquired pneumonia Condition on Discharge: Good Activity: Resume your previous activity Non-emergency contact: Primary Care Provider Call non-emergency contact if: your symptoms worsen and your pain is not controlled Follow-up/Referrals: Wilmer Robles V., [Resident] - (Please call the office to establish care and make a hospital follow up appointment for next week. have pt follow up next week with either me or another resident in the neighboring [facility] clinic ) Diet: Regular Addtl Attending Provider Instructions: You were admitted for concern about fever, chest pain, and elevated white blood cell count. Suspicions included pneumonia, UTI, and pericarditis, thus you were started on IV broad spectrum antibiotics. With both clinical and medical improvement in your condition with the antibiotics, and now that we have a negative TB blood test, we feel comfortable with your discharge home today. Please follow up with primary care at the neighboring [facility] outpatient clinic next week to establish care if you are not already established with primary care. - please call [phone] to make an establishing care appt with us; otherwise can choose [facility] if preferred - either way would like you to follow up outpatient next week to ensure continued improvement and stability. #Community Acquired Pneumonia Suspecting based on symptoms, elevated white blood cells, and no concerning findings on echocardiogram or urinalysis - TB blood test negative - improving labs and symptoms with antibiotics - please continue taking Augmentin 875mg twice daily for 5 more days and Azithromycin 250mg for 3 more days starting tomorrow 06/07/25 to ensure continued resolution of suspected pneumonia - continue healthy diet and good hydration #Right middle lobe nodular opacity 5mm, seen on CT chest - could be a representation of pneumonia, but in case it is a true nodule we'd like you to obtain a followup chest CT in 6-12mos for monitoring Pending Studies at Discharge: Yes Studies:: dengue antibodies Stand-Alone Forms: My [employer], Smoking Cessation Medications and DC Order Prescriptions: New azithromycin 250 mg Tablet 250 mg PO QAM 3 Days Qty: 3 0RF Rx Instructions: starting tomorrow, take one tablet daily ( you had a dose this AM already) until completion amoxicillin-pot clavulanate 875-125 mg tablet 1 tab PO BID Qty: 11 0RF Rx Instructions: take with meals, drink plenty of water. One dose this evening, thereafter twice daily with meals until completion Continued acetaminophen [Tylenol Extra Strength] 500 mg Tablet 500 mg PO DIRECTED PRN (Reason: PAIN/ACHES/FEVER) Discharge Orders: Discharge Order (Routine); Ordered 06/06/25 Ordered By: Wilmer Robles Admission Data Admit Date/Time: 06/04/25 21:11 Attending Provider: Duc Mondragon Admit Provider: Zrai Neal Primary Care Provider: PCP,NO Other Providers: James Harding Other Interventions: Discharge Summary Assessment (RN) Last Done: 06/06/25 12:03 Supervising Physician Co-Signing Physician Notes Resident Physician Supervision Note: I personally examined the patient and verified all lopez points of history and exam, discussed case, and agree with decision making with Dr. Robles I discussed the case with the resident and agree with the findings and plan as documented in the note. Any exceptions or clarifications are listed here: None Patient seen in company of her significant other. She says she feels back to normal. Patient's chest discomfort has gone away. since she had fever and leukocytosis will complete course of antibiotics after discharge and have follow up in clinic to re eval pulmonary nodule, quant gold negative Examination finds her to be without cardiac rubs her cardiac exam is regular her lungs are clear with there is no pleural rub good excursion without significant distress upon evaluation by myself Difficult case with fever and some symptoms consistent with pleuritic pain in her chest. These are resolving. There is no defined infection. Will be evaluating to rule out tuberculosis by QuantiFERON gold but if she does continue to improve may consider close outpatient follow-up Documented By: Duc Mondragon MD Resident Activity Tracking Resident Involvement: Resident Care Provided Care Provided: Adult Hospital Medicine
[2025-06-06 11:56] VITALS: BP 105/67; PULSE 93; TEMP 98.1; O2SAT 96
[2025-06-06] MEDS: AMOXICILLIN/CLAVULANATE 875 MG TAB PO ONE (12:32)
--- NOTE | 2025-06-06 17:13 | Billing Data ---
Date of Service June 06, 2025 Coding Level of Care Code 72946 IN/OBS DISCH 30 MIN/LESS
--- NOTE | 2025-06-11 06:15 | Coding Query ---
SEPSIS To promote full compliance with coding requirements relating to patient care, physician participation is requested in all cases of sewing supervisor uncertainty. Please assist us with the question(s) below: The medical record reflects the following clinical findings: Pt admitted with community acquired pneumonia. Fever 38.4, leukocytosis, tachycardia, meeting SIRS criteria as per documentation. Lactate 24 with recheck level 2.3 and procal .58. Please check below, if applicable, the diagnosis that was treated during this inpatient stay. Thank you. Hubert Barroso [facility] ____ ( )Bacteremia (Nonspecific laboratory finding of bacteria in the blood) Specify Organism ( ) Present on Admission ( ) Not present on admission ( ) Unable to clinically determine ( ) Septicemia (Systemic disease associated with the presence of pathogenic microorganisms in the blood): Specify Organism ( ) Present on Admission ( ) Not present on admission ( ) Unable to clinically determine ( ) Sepsis Specify Organism Specify Associated Condition/Diagnosis ( ) Present on Admission ( ) Not present on admission ( ) Unable to clinically determine ( ) Severe Sepsis (Sepsis associated with acute organ dysfunction) Specify Organism Specify Associated Condition/Diagnosis ( ) Present on Admission ( ) Not present on admission ( ) Unable to clinically determine ( ) Septic Shock (Severe sepsis with acute circulatory failure, unexplained by other causes) ( ) Present on Admission ( ) Not present on admission ( ) Unable to clinically determine (xx ) Other, patient has: pt admitted with community acquired pneumonia and concern for pericarditis which was rules out. YUDITHD
== END 2025-06-06 13:03 | disposition home or self-care (01) | DRG 195 ==
LOC: ED 16:04 → SUATTDRO 21:11 → 2E 21:11